=== PATIENT | female | born 1995 | race Caucasian/White ===

== ENCOUNTER 2024-10-13 05:49 | Emergency (ER) | payer OTHER ==
[~2024-10-13] VITALS: Ht 170.2 cm; Wt 68.6 kg
[2024-10-13 06:18] LABS: COVID AG,FIA SOURCE NASAL SWAB
[2024-10-13] MEDS: ACETAMINOPHEN 325 MG TABLET PO ONE (06:32)
[2024-10-13] MEDS: SODIUM CHLORIDE 0.9% 2,050 ML IV ONE (06:32)
[2024-10-13 06:34] LABS: PLATELET COUNT (AUTO) 231 K/uL (150-450); RED BLOOD CELL COUNT(AUTO) 4.66 MIL/uL (4.00-5.20); RED CELL DISTRIBUTION WIDTH 14.0 % (11.5-14.5); WHITE BLOOD COUNT (AUTO) 7.4 K/uL (4.5-11.0)
[2024-10-13 06:42] LABS: SARS-COV2 (COVID) ANTIGEN,FIA Negative (Negative)
[2024-10-13 06:43] LABS: INFLUENZA TYPE A NEGATIVE FOR TYPE A (NEGATIVE); INFLUENZA TYPE B NEGATIVE FOR TYPE B (NEGATIVE)
[2024-10-13 06:45] LABS: CALCIUM, TOTAL 8.9 mg/dL (8.8-10.5); CREATININE 0.79 mg/dL (0.60-1.30); GLOMERULAR FILTR. RATE CALC > 60 mL/min (>60); GLUCOSE,RANDOM 123 mg/dL (70-110); SODIUM SERUM 134 mmol/L (136-145); UREA NITROGEN, BLOOD 6 mg/dL (7-18)
[2024-10-13 06:47] LABS: APPEARANCE,URINE CLEAR (CLEAR); GLUCOSE, URINE (UA) NEGATIVE (NEGATIVE); LEUKOCYTE ESTERASE ,URINE NEGATIVE (NEGATIVE); NITRATE,URINE NEGATIVE (NEGATIVE); OCCULT BLOOD,URINE MODERATE (NEGATIVE); SPECIFIC GRAVITIY, URINE 1.005 (1.003-1.030)
[2024-10-13 06:49] LABS: ASPARTATE AMINOTRANSFERASE 17.0 U/L (15-37); TOTAL PROTEIN, SERUM 7.5 g/dL (6.4-8.2)
[2024-10-13 07:16] LABS: SQUAMOUS EPITHELIAL CELL,UR Few /LPF (None Seen)
[2024-10-13] MEDS: KETOROLAC TROMETHAMINE 30 MG/ML VIAL IVP ONE ×2 (07:16→09:12)
[2024-10-13 08:20] VITALS: TEMP 98.1
[2024-10-13] MEDS: ALBUTEROL SULFATE 2.5 MG/0.5 ML NEB SOLUTION NEB ONE (09:59)
[2024-10-13] MEDS: IPRATROPIUM BROMIDE 0.5 MG/2.5 ML NEB SOLUTION NEB ONE (09:59)
[2024-10-13 10:00] VITALS: PULSE 75; RESP 16; O2SAT 99
[2024-10-13 10:01] VITALS: PULSE 75; RESP 16; O2SAT 100
[2024-10-13 11:40] VITALS: BP 123/74; O2SAT 97
[2024-10-13] MEDS ORDERED: AMOX500C2 PO (11:49)
[2024-10-13] MEDS ORDERED: AZIT250T9 PO (11:49)
[2024-10-13 12:00] VITALS: PULSE 76; RESP 16; O2SAT 99
[2024-10-13] MEDS: CefTRIAXone 1 GM/DEXTROSE 50 ML IV ONE (12:05)
[2024-10-13] MEDS: ALBUTEROL SULFATE HFA 90 MCG/PUFF 8 GM INHALER IH ONE (12:07)
== END 2024-10-13 12:48 | disposition home or self-care (01) ==
LOC: EMS 05:49
DX: J18.9 Pneumonia, unspecified organism (principal); R50.9 Fever, unspecified; R06.02 Shortness of breath; Z20.822 Contact with and (suspected) exposure to COVID-19
CPT/HCPCS: 99285; 74176; 96365; 96361; 71045; 96375; 87426; 80048; 80076; 81001; 84702; 85025; 87804; 36415; 94640; J1885; J0696; J7030; 94760; J3535